=== PATIENT | male | born 1935 | race Caucasian/White ===

== ENCOUNTER → 2017-10-14 04:00 | Outpatient (REF) | payer MEDICARE, BC, SELFPAY ==
[2017-10-14 07:16] LABS: Hematocrit 24.5 % (40-54); Hemoglobin 7.6 g/dl (13.0-16.5); Mean Corpuscular Hgb 27.6 pg (27.0-32.0); Mean Corpuscular Volume 89.1 fL (80-94); Mean Platelet Vol. 8.8 fl (6.2-12.0); Platelet Count 367 K/mm3 (150-450); RBC Distribution Width CV 14.9 % (11.6-14.6); RBC Distribution Width SD 48.4 fl (35.1-43.9); Red Blood Count 2.75 M/mm3 (4.6-6.2); White Blood Count 8.4 K/mm3 (4.4-11.0)
[2017-10-14 07:23] LABS: Scan Indicated on CBC? Y/N NO
[2017-10-14 07:35] LABS: Anion Gap 8 (5-15); BUN 37 mg/dL (7-18); BUN/Creat Ratio 26.6 RATIO (10-20); Chloride 112 mmol/L (98-107); Creatinine, Serum 1.39 mg/dL (0.70-1.30); EST Glomerular Filtration Rate 52 mL/min (>60); Est Glom Filt Rate - Afr Amer 63 mL/min (>60); Glucose 51 mg/dL (74-106); Potassium 3.9 mmol/L (3.5-5.1); Sodium Level 143 mmol/L (136-145)
== END ==
LOC: OLS.ACH 04:00
PROVIDERS: Visit Provider Family Medicine
DX: R40.20 Unspecified coma (principal)
CPT/HCPCS: 36415; 80048; 85027